=== PATIENT | female | born 1950 | race Caucasian/White ===

== ENCOUNTER 2019-04-16 08:30 | Emergency (ER) | payer MEDICARE, BC ==
[~2019-04-16] VITALS: Ht 160 cm; Wt 70.9 kg
[~2019-04-16 08:30] MED LIST: OXYC-150 PO; PROM12.512 PO
[2019-04-16] MEDS ORDERED: ibuprofen 200mg tablet PO ONE (09:35)
[2019-04-16] MEDS ORDERED: HYDR-3965 PO (09:42)
--- NOTE | 2019-04-16 10:04 | NUR ---
PT JUST GOT X RAY, NO NEEDS AT THIS TIME
--- NOTE | 2019-04-16 10:44 | NUR ---
tech re checked splint as pt c/p blueness and pain on standing, she put her foot back up and it resolved immediately, she will f/u with ortho clinic
[2019-04-16 10:45] VITALS: BP 129/66
== END 2019-04-16 10:47 | disposition home or self-care (01) ==
LOC: ER 08:30
DX: S82.831A Other fracture of upper and lower end of right fibula, initial encounter for closed fracture (principal); I10 Essential (primary) hypertension; E11.9 Type 2 diabetes mellitus without complications; Z98.890 Other specified postprocedural states; X50.1XXA Overexertion from prolonged static or awkward postures, initial encounter; Y93.89 Activity, other specified; Y92.89 Other specified places as the place of occurrence of the external cause; Y99.9 Unspecified external cause status
CPT/HCPCS: 29515; 73610; 99284

== ENCOUNTER 2019-04-19 16:11 | Outpatient (CLI) | payer MEDICARE, BC ==
[~2019-04-19 16:11] MED LIST changes: +HYDR-3965 PO
== END 2019-04-19 17:45 | disposition home or self-care (01) ==
LOC: ORTHO 16:11
PROVIDERS: ATTEND Orthopaedic Surgery
DX: S82.61XD Displaced fracture of lateral malleolus of right fibula, subsequent encounter for closed fracture with routine healing (principal); I10 Essential (primary) hypertension; E11.9 Type 2 diabetes mellitus without complications; W01.0XXD Fall on same level from slipping, tripping and stumbling without subsequent striking against object, subsequent encounter
CPT/HCPCS: G0463

== ENCOUNTER 2019-04-25 12:06 | Observation (INO) | payer MEDICARE, BC ==
[2019-04-24 11:51] LABS: BASOPHILS # (AUTO) 0.1 X10'3 (0-0.2); BASOPHILS % (AUTO) 0.9 % (0-1); EOSINOPHILS # (AUTO) 0.4 X10'3 (0-0.9); EOSINOPHILS % (AUTO) 4.4 % (0-6); LYMPHOCYTES # (AUTO) 1.9 X10'3 (1.1-4.8); LYMPHOCYTES % (AUTO) 22.3 % (21-51); MEAN CORPUSCULAR VOLUME 97.2 FL (78-98); MEAN PLATELET VOLUME 7.9 FL (7.4-10.4); MONOCYTES # (AUTO) 0.5 X10'3 (0-0.9); MONOCYTES % (AUTO) 6.1 % (2-12); NEUTROPHILS # (AUTO) 5.6 X10'3 (1.8-7.7); NEUTROPHILS % (AUTO) 66.3 % (42-75); PRE OP HEMATOCRIT 42.4 % (35.0-45.0); PRE OP HEMOGLOBIN 14.4 g/dL (12.0-16.0); PRE OP PLATELET COUNT 301 X10'3 (140-440); RED BLOOD COUNT 4.37 X10'6 (4.20-5.60); RED CELL DISTRIBUTION WIDTH 12.3 % (11.5-14.5)
[2019-04-24 11:54] LABS: ALBUMIN/GLOBULIN RATIO 1.2 (1.1-1.5); ALKALINE PHOSPHATASE 109 IU/L (46-116); BLOOD UREA NITROGEN 23 MG/DL (7-18); BUN/CREATININE RATIO 28.8 (6.6-38.0); CALCIUM 9.6 MG/DL (8.5-10.1); CHLORIDE 104 MMOL/L (99-107); PRE OP ALT 23 U/L (30-65); PRE OP ANION GAP 9 (8-16); PRE OP AST 22 U/L (10-37); PRE OP BILIRUB, TOTAL 0.5 MG/DL (0.0-1.0); PRE OP GLUCOSE 107 MG/DL (70-104); PRE OP SODIUM 140 MMOL/L (135-145); TOTAL CARBON DIOXIDE 27.4 MMOL/L (24-32); TOTAL PROTEIN 7.4 G/DL (6.4-8.2); eGFR 72 ML/MIN
[~2019-04-25] VITALS: Ht 160 cm; Wt 71.0 kg
[2019-04-25] VITALS (15 sets, daily range): BP systolic 104–149; BP diastolic 57–82
[~2019-04-25 12:06] MED LIST changes: +DAPA10TA PO; +DOCUMENT DATE & TIME OF BETA-BLOCKER PO ONE; -HYDR-3965 PO; +LIRA0.6P SQ; +LISI10TA4 PO; +METF-950 PO; +MILK1CAP3; +MULT-1180 PO; -OXYC-150 PO; +POTA10TA36 PO; +PRAS25CA; -PROM12.512 PO; +PROP10TA10 PO; +TETanus/Pertussis (Acell)/Diphther VAC/PF (Tdap-Adult) 0.5ml syringe IMVAC ONE; +TUMERIC; +[UNRECOGNIZED DRUG - OTHER]; +cefazolin/dext.iso 2gm/50ml 50 ML IV ONE; +famotidine 20mg tablet PO ONE; +ringers solution, lacted 1,000 ML IV SCH; +tetanus & diphtheria toxoid (Td) vaccine 0.5ml IMVAC ONE
[2019-04-25] MEDS ORDERED: BUPIVAcaine/PF 2.5 mg/ml (0.25%) 30ml vial ONE (16:43)
[2019-04-25] MEDS ORDERED: meperidine/PF 25mg/ml syringe IV PRN ×3 (18:15)
[2019-04-25] MEDS ORDERED: ondansetron/PF 4mg/2ml inj IV PRN ×2 (18:15→20:30)
[2019-04-25] MEDS ORDERED: morphine 4 MG/ML inj SYRINge IV PRN ×2 (18:15)
[2019-04-25] MEDS ORDERED: ringers solution, lacted 1,000 ML IV SCH (18:15)
[2019-04-25] MEDS ORDERED: proCHLORperazine 10 MG/2 ml inj IV PRN (18:15)
[2019-04-25] MEDS ORDERED: cloNIDine hcl/PF 100mcg/ml inj ONE (18:19)
[2019-04-25] MEDS ORDERED: fentaNYL/PF 50MCG/1 ML 2ML syringe ONE (18:21)
[2019-04-25] MEDS ORDERED: midazolam 2 mg/2 ml injection ONE ×2 (18:21)
[2019-04-25] MEDS ORDERED: propofol inj 20 ML IV ONE (18:21)
[2019-04-25] MEDS ORDERED: ROPIVAcaine 0.5% (5mg/ml) 30ml vial ONE (18:26)
[2019-04-25] MEDS ORDERED: ondansetron/PF 4mg/2ml inj ONE (18:26)
[2019-04-25] MEDS ORDERED: dexamethasone sod phosphate 4mg/ml inj. ONE (18:26)
[2019-04-25] MEDS ORDERED: sevoflurane 250ml liquid IH ONE (18:26)
--- NOTE | 2019-04-25 20:01 | NUR ---
[facility] accompanied by Anesthesiologist Kamila and report given by Anesthesiolgist. Pt VS stable with mask to 10L and sats 98%. Pt responsive to questions, 20G IV to right hand LR at 100cc/hr. Toes to right foot pink and good cap refill. Pt states no pain. Right foot wrapped in padded cast.
--- NOTE | 2019-04-25 20:25 | NUR ---
Called Dr Barnett to confirm patient is staying overnight for observation and to request different pain meds than norco per pt's request for something less strong. Orders for tramadol received over phone. Dr barnett also then spoke with to give him update on surgical outcome. All questions answered by .
[2019-04-25] MEDS ORDERED: sodium chloride 0.45% 1,000 ML IV SCH (20:30)
[2019-04-25] MEDS ORDERED: traMADol 50MG tablet PO PRN (20:30)
[2019-04-25] MEDS ORDERED: HYDROcodone/acetaminophen 5mg/325mg tablet PO PRN (20:30)
[2019-04-25] MEDS ORDERED: HYDROcodone/acetaminophen 10/325mg tab PO PRN (20:30)
--- NOTE | 2019-04-25 20:50 | NUR ---
Pt transferred upstairs, report called to Marcia LAMAS. Pt alert and responsive, VS stable, belongings on bedside, at bedside. BLL, call light within reach, RN at bedside to receive pt.
[2019-04-26] MEDS ORDERED: ceFAZolin 1GM/D5W- ADD-VANTAGE 50 ML IV SCH
[2019-04-26 02:00] VITALS: BP 105/59
[2019-04-26 06:00] VITALS: BP 102/53
--- NOTE | 2019-04-26 06:11 | NUR ---
REPORT GIVEN TO CYDNEY ARGUELLES.
--- NOTE | 2019-04-26 06:25 | NUR ---
Patient in room ORTHO 4022. I have received report from Vicki and had the opportunity to ask questions and assume patient care.
[2019-04-26] MEDS ORDERED: HYDR-4353 PO (07:11)
--- NOTE | 2019-04-26 09:18 | NUR ---
D/C of PIV, catheter was intact. Site without S/S of complications
[2019-04-26 10:29] VITALS: BP 124/62
--- NOTE | 2019-04-26 10:41 | NUR ---
DM Consult: Pt has hx T2DM however no A1C hx and no A1C draw this admit. Started on hyperglycemia protocol w/ only one GLU 152. PHILL called RN for new A1C though pt now d/c per RN. Addendum: 04/26/19 at [address] Amended: Links added.
--- NOTE | 2019-04-26 10:45 | NUR ---
Reviewed discharge instructions with pt. 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 Pt is alert, oriented and does not have c/o pain at this time. Pt was wheeled downstairs to be driven home by her spouse. Pt was given an Rx for pain medication. A copy of the Rx was made and placed in the chart. All of pt's belongings were returned to pt.
== END 2019-04-26 10:35 | disposition home or self-care (01) ==
LOC: PAS 12:06 → ORTHO 4S 21:23
PROVIDERS: ADMIT Orthopaedic Surgery; ATTEND Orthopaedic Surgery
PROC: 3E0T3BZ Introduction of Anesthetic Agent into Peripheral Nerves and Plexi, Percutaneous Approach (ICD-10-PCS; 2019-04-25)
PROC: 0QSJ04Z Reposition Right Fibula with Internal Fixation Device, Open Approach (ICD-10-PCS; principal; 2019-04-25 18:26)
DX: S82.64XA Nondisplaced fracture of lateral malleolus of right fibula, initial encounter for closed fracture (principal); M25.571 Pain in right ankle and joints of right foot; E11.9 Type 2 diabetes mellitus without complications; I10 Essential (primary) hypertension; Z23 Encounter for immunization
CPT/HCPCS: 27792; 36415; 64447; 80053; 82948; 85025; 93005; 96365; 97116; 97161; 97530; C1713; G0009; G0378; J0690; J0735; J1100; J2250; J2405; J2704; J3010; J3490; J7120; A4215; A4618; A6449; A7000; J2795

== ENCOUNTER 2019-05-02 09:43 | Outpatient (CLI) | payer MEDICARE, BC ==
[~2019-05-02 09:43] MED LIST changes: -DOCUMENT DATE & TIME OF BETA-BLOCKER PO ONE; +HYDR-4353 PO; -TETanus/Pertussis (Acell)/Diphther VAC/PF (Tdap-Adult) 0.5ml syringe IMVAC ONE; -cefazolin/dext.iso 2gm/50ml 50 ML IV ONE; -famotidine 20mg tablet PO ONE; -ringers solution, lacted 1,000 ML IV SCH; -tetanus & diphtheria toxoid (Td) vaccine 0.5ml IMVAC ONE
== END 2019-05-02 10:12 | disposition home or self-care (01) ==
LOC: ORTHO 09:43
PROVIDERS: ATTEND Nurse Practitioner
DX: S82.491D Other fracture of shaft of right fibula, subsequent encounter for closed fracture with routine healing (principal); I10 Essential (primary) hypertension; E11.9 Type 2 diabetes mellitus without complications; X58.XXXD Exposure to other specified factors, subsequent encounter
CPT/HCPCS: G0463

== ENCOUNTER 2019-05-29 10:19 | Outpatient (CLI) | payer MEDICARE, BC | END 2019-05-29 11:30 | disposition home or self-care (01) | LOC: ORTHO 10:19 | PROVIDERS: ATTEND Nurse Practitioner | DX: S82.491D Other fracture of shaft of right fibula, subsequent encounter for closed fracture with routine healing (principal); I10 Essential (primary) hypertension; E11.9 Type 2 diabetes mellitus without complications; X58.XXXD Exposure to other specified factors, subsequent encounter | CPT/HCPCS: 73600; G0463 ==

== ENCOUNTER 2022-06-05 19:31 | Emergency (ER) | payer MEDICARE, BC ==
[~2022-06-05] VITALS: Ht 160 cm; Wt 68.2 kg
[~2022-06-05 19:31] MED LIST changes: +LISI10TA27 PO; -LISI10TA4 PO; +METF-1203 PO; -METF-950 PO; +POTA-206 PO; -POTA10TA36 PO
[2022-06-05 19:53] LABS: BASOPHILS # (AUTO) 0.1 X10'3 (0-0.2); BASOPHILS % (AUTO) 0.7 % (0-1); EOSINOPHILS # (AUTO) 0.3 X10'3 (0-0.9); HEMATOCRIT 43.3 % (35.0-45.0); HEMOGLOBIN 14.4 g/dl (12.0-16.0); LYMPHOCYTES # (AUTO) 2.7 X10'3 (1.1-4.8); LYMPHOCYTES % (AUTO) 36.6 % (21-51); MEAN CORPUSCULAR HEMOGLOBIN 29.5 PG (27.0-31.0); MEAN CORPUSCULAR HGB CONC 33.3 g/dL (33.0-36.5); MEAN CORPUSCULAR VOLUME 88.5 FL (78-98); MEAN PLATELET VOLUME 7.5 FL (7.4-10.4); MONOCYTES # (AUTO) 0.6 X10'3 (0-0.9); MONOCYTES % (AUTO) 8.3 % (2-12); NEUTROPHILS # (AUTO) 3.7 X10'3 (1.8-7.7); NEUTROPHILS % (AUTO) 50.4 % (42-75); PLATELET COUNT 226 X10'3 (140-440); RED CELL DISTRIBUTION WIDTH 17.6 % (11.5-14.5); WHITE BLOOD COUNT 7.3 X10'3 (4.5-11.0)
[2022-06-05 20:17] LABS: ALANINE AMINOTRANSFERASE 35 U/L (12-78); ALBUMIN 3.9 G/DL (3.4-5.0); ALKALINE PHOSPHATASE 172 IU/L (46-116); ANION GAP 12 (8-16); ASPARTATE AMINO TRANSFERASE 42 U/L (10-37); BILIRUBIN,TOTAL 0.3 MG/DL (0.1-1.0); BLOOD UREA NITROGEN 18 MG/DL (7-18); BUN/CREATININE RATIO 18.4 (6.6-38.0); CALCIUM 9.1 MG/DL (8.5-10.1); CHLORIDE 103 MMOL/L (99-107); CREATININE 0.98 MG/DL (0.40-0.90); GLUCOSE 180 MG/DL (70-104); MAGNESIUM 1.9 MG/DL (1.5-2.4); POTASSIUM 3.6 MMOL/L (3.5-5.1); SODIUM 139 MMOL/L (135-145); TOTAL CARBON DIOXIDE 23.9 MMOL/L (24-32); TOTAL PROTEIN 7.7 G/DL (6.4-8.2); eGFR 56 ML/MIN
[2022-06-05] MEDS ORDERED: guaiFENesin/codeine phos 10ml UD oral syrup PO ONE (20:45)
[2022-06-05] MEDS ORDERED: ondansetron 4mg rapidly disintigrating tab PO ONE (20:45)
[2022-06-05] MEDS ORDERED: benzonatate 100mg capsule PO ONE (20:45)
[2022-06-05] MEDS ORDERED: GUAI120L55 PO (20:47)
[2022-06-05] MEDS ORDERED: AZIT-83 PO (20:47)
[2022-06-05 21:20] VITALS: BP 170/77
== END 2022-06-05 22:17 | disposition home or self-care (01) ==
LOC: ER 19:32
DX: R05.1 Acute cough (principal); R06.02 Shortness of breath; E11.9 Type 2 diabetes mellitus without complications; I10 Essential (primary) hypertension; Z87.81 Personal history of (healed) traumatic fracture; Z79.899 Other long term (current) drug therapy
CPT/HCPCS: 36415; 71046; 80053; 82948; 83735; 83880; 84484; 85025; 93005; 99285